=== PATIENT | male | born 2000 | race American Indian/Alaskan Native ===

== ENCOUNTER 2021-02-06 20:17 | Inpatient (IN) | payer SELFPAY ==
[2021-02-06 20:38] VITALS: BP 156/80; PULSE 105; RESP 18; TEMP 36.7; O2SAT 98; BMI 27.8
--- NOTE | 2021-02-06 21:18 | W.ED.PSYCHS ---
HPI - Psych General: Chief Complaint: Psychiatric Symptoms Stated Complaint: psyciatric Symptoms Time Seen by Provider: 02/06/21 20:47 Source: patient Mode of arrival: ambulatory Limitations: no limitations History of Present Illness: HPI Narrative: 20-year-old male states he has history of drug abuse. He states that he been wanting to go to rehab but his drug abuse also been causing depression and suicidality. He states he would like to get help would like to be admitted to the psychiatric gama. No active suicidal plan denies any worsening improving factors. Associated symptoms: Reports depression Review of Systems Const: Denies: fever(s), chills, body aches or change in appetite Eyes: Denies: blurry vision or eye discomfort ENMT: Denies: throat pain or dental pain Card: Denies: chest pain Resp: Denies: dyspnea GI: Denies: abdominal pain, nausea, vomiting or diarrhea : Denies: dysuria Musc: Denies: neck pain or back pain Skin/Breast: Denies: rash Neuro: Denies: headache(s) Psych: Reports: depression Josiah/Lymph: Denies: easy bruising All/Imm: Denies: urticaria Physical Exam Const: COMMON NORMALS: no acute distress, patient oriented x3 and healthy appearing HENMT: COMMON NORMALS: normocephalic and atraumatic HEAD & SCALP: normocephalic and atraumatic Eye: COMMON NORMALS: Equal, round and reactive pupils present and EOMs intact bilaterally PUPIL: Yes Equal, round and reactive pupils present Neck/C-Spine: COMMON NORMALS: full ROM and supple Chest: COMMONS NORMALS: normal inspection of the chest and normal palpation of entire chest wall Resp: COMMON NORMALS: normal respiratory effort, No retractions, No use of accessory muscles and clear to auscultation bilaterally AUSCULTATION: clear to auscultation bilaterally Cardio: COMMON NORMALS: regular rate, regular rhythm and No murmurs present (Cardio) RATE: regular rate RHYTHM: regular rhythm GI: COMMON NORMALS: Normal to inspection, nondistended, normoactive bowel sounds present, Soft to palpation, non-tender and no masses PALPATION: Yes Soft to palpation Extremity: COMMON NORMALS: normal to inspection and full ROM Neuro: COMMON NORMALS: patient oriented x3, moves all extremities and no focal motor deficits Psych: COMMON NORMALS: mental status grossly normal and cooperative THOUGHT CONTENT: Yes Suicidality present Skin: COMMON NORMALS: no rashes or lesions noted and no wounds GENERAL SKIN EXAM: no rashes or lesions noted Course Vital Signs: Vital signs: Vital Signs Temperature 98.1 F 02/06/21 20:38 Pulse Rate 105 H 02/06/21 20:38 Respiratory Rate 18 02/06/21 20:38 Blood Pressure 156/80 02/06/21 20:38 Pulse Oximetry 98 02/06/21 20:38 MDM - Psych MDM Narrative: Medical decision making narrative: Patient presents here with depression with suicidal thoughts likely from long-term methamphetamine abuse. Patient does not have any active plan but is voluntarily wanting help spoke to Dr. Murphy will admit to the psychiatric gama patient's blood work here is all normal. Lab Data: Labs: Lab Results 02/06/21 02/06/21 02/06/21 21:40 21:40 22:00 WBC 13.8 10^3/uL H 10 ^3/uL (4.0-10.0) RBC 4.68 10^6/uL 10^6 /uL (4.1-5.3) Hgb 13.8 g/dL g/dL (11.7-16.6) Hct 41.6 % L % (42.0-52.0) MCV 88.9 fl fl (80-94) MCH 29.5 pg pg (28.0-34.0) MCHC 33.2 g/dL g/dL (30.0-36.0) RDW 13.2 % % (12.1-15.1) Plt Count 272 10^3/cmm 10^3 /cmm (130-400) MPV 10.3 fL fL (7.4-10.4) Neut % (Auto) 70.4 % % Lymph % (Auto) 24.1 % % Humphreys % (Auto) 4.6 % % Eos % (Auto) 0.5 % % Baso % (Auto) 0.3 % % Neut # (Auto) 9.74 10^3/uL H 10 ^3/uL (1.8-7.7) Lymph # (Auto) 3.3 10^3/uL 10^3/ uL (0.8-4.8) Humphreys # (Auto) 0.6 10^3/uL 10^3/ uL (0.2-0.9) Eos # (Auto) 0.1 10^3/uL 10^3/ uL (0.0-0.8) Baso # (Auto) 0.0 10^3/uL 10^3/ uL (0.0-0.1) Nucleated RBC % (a uto) 0 % % Nucleated RBCs # 0.0 /100WBC /100W BC Sodium 140 mmol/L mmol/L (136-145) Potassium 3.6 mmol/L mmol/L (3.5-5.1) Chloride 103 mmol/L mmol/L (98-107) Carbon Dioxide 26 mmol/L mmol/L (22-29) Anion Gap 14.6 (5-19) BUN 8 mg/dL mg/dL (6-20) Creatinine 0.7 mg/dL mg/dL (0.7-1.2) GFR Calculation 141.0 mL/min H mL /min (90-130) Glucose 99 mg/dL mg/dL (65-115) Calculated Osmolal ity 288 mOsm/kg mOsm/ kg (285-295) Calcium 8.5 mg/dL mg/dL (8.5-10.5) Total Bilirubin 0.2 mg/dL mg/dL (0.15-1.2) AST 15 U/L U/L (0-40) ALT 15 U/L U/L (0-41) Alkaline Phosphata se 76 IU/L IU/L (40-130) Total Protein 7.5 g/dL g/dL (6.6-8.7) Albumin 4.2 g/dL g/dL (3.5-5.2) Globulin 3.3 g/dL g/dL (1.3-4.6) Salicylates < 0.3 mg/dL L mg/ dL (3-10) Acetaminophen < 5.0 ug/mL L ug/ mL (10-30) Ur Barbiturates Sc reen Negative ng/mL ng /mL (Negative) Ur Phencyclidine S crn Negative ng/mL ng /mL (Negative) Ur Amphetamines Sc reen Positive ng/mL H ng/mL (Negative) U Benzodiazepines Scrn Negative ng/mL ng /mL (Negative) Urine Cocaine Scre en Negative ng/mL ng /mL (Negative) U Marijuana (THC) Screen Positive ng/mL H ng/mL (Negative) Ethyl Alcohol 46 mg/dL H mg/dL (0-10) Discharge Plan Discharge Patient Disposition: Admitted As Inpatient Clinical Impression: Suicidal ideation, Methamphetamine abuse Condition: Stable Coding Level of Care Code ED Documentation Specialist for Radha Clark Exam Comprehensive
[2021-02-06 22:01] LABS: Basophils % 0.3 %; Eosinophils # 0.1 10^3/uL (0.0-0.8); Eosinophils % 0.5 %; Hematocrit 41.6 % (42.0-52.0); Hemoglobin 13.8 g/dL (11.7-16.6); Lymphocytes # 3.3 10^3/uL (0.8-4.8); Lymphocytes % 24.1 %; Mean Corpuscular HGB Conc 33.2 g/dL (30.0-36.0); Mean Corpuscular Hemoglobin 29.5 pg (28.0-34.0); Mean Corpuscular Volume 88.9 fl (80-94); Mean Platelet Volume 10.3 fL (7.4-10.4); Monocytes # 0.6 10^3/uL (0.2-0.9); Monocytes % 4.6 %; Neutrophils # 9.74 10^3/uL (1.8-7.7); Neutrophils % 70.4 %; Nucleated Red Blood Cells % 0 %; Platelet Count 272 10^3/cmm (130-400); Red Blood Count 4.68 10^6/uL (4.1-5.3); Red Cell Distribution Width 13.2 % (12.1-15.1); White Blood Count 13.8 10^3/uL (4.0-10.0)
[2021-02-06 22:14] LABS: Amphetamines Screen Urine Positive (Negative); Barbiturates Screen Urine Negative (Negative); Benzodiazepines Screen Urine Negative (Negative); Cocaine Screen Urine Negative (Negative); PCP Screen Urine Negative (Negative); THC Screen Urine Positive (Negative)
[2021-02-06 22:22] LABS: Alanine Aminotransferase 15 U/L (0-41); Albumin Level 4.2 g/dL (3.5-5.2); Alcohol Level 46 mg/dL (0-10); Alkaline Phosphatase 76 IU/L (40-130); Anion Gap 14.6 (5-19); Aspartate Amino Transferase 15 U/L (0-40); Blood Urea Nitrogen 8 mg/dL (6-20); Calcium 8.5 mg/dL (8.5-10.5); Carbon Dioxide 26 mmol/L (22-29); Chloride 103 mmol/L (98-107); Globulin 3.3 g/dL (1.3-4.6); Glucose 99 mg/dL (65-115); Osmolality Calculated 288 mOsm/kg (285-295); Potassium 3.6 mmol/L (3.5-5.1); Sodium 140 mmol/L (136-145); Total Bilirubin 0.2 mg/dL (0.15-1.2); Total Protein 7.5 g/dL (6.6-8.7)
[2021-02-06 22:23] LABS: Acetaminophen < 5.0 ug/mL (10-30); Salicylate < 0.3 mg/dL (3-10)
[2021-02-06 22:30] LABS: Opiate Screen Urine Negative (Negative)
[2021-02-06 23:20] VITALS: BP 156/80; PULSE 105; RESP 18; TEMP 36.7; O2SAT 98
[2021-02-06 23:27] VITALS: BP 156/80; PULSE 105; RESP 18; TEMP 36.7; O2SAT 98
[2021-02-06 23:55] VITALS: BP 153/99; PULSE 95; RESP 18; O2SAT 95
[2021-02-07] MEDS: hyDROXYzine 25 mg Capsule 50 MG PO ×2 (00:53→13:45)
[2021-02-07] MEDS: trazodone 50 mg Tablet PO (00:53)
--- NOTE | 2021-02-07 00:56 | PC.NURSE ---
patient given hydroxizine 50 mg po and trazadone 50 mh po for c/o anxiety and insomnia.
[2021-02-07 06:00] VITALS: BP 132/84; PULSE 80; RESP 16; O2SAT 96
[2021-02-07] MEDS: nicotine 21 mg Patch 1 PATCH TRANSDERMA (08:07)
[2021-02-07 14:00] VITALS: RESP 14
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
[2021-02-07 18:11] VITALS: RESP 14
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
== END 2021-02-07 18:17 | disposition left against medical advice (07) | DRG 881 ==
LOC: ER 22:26 → NP 23:32
PROVIDERS: Admitting Provider Psychiatry & Neurology Psychiatry; Emergency Provider Emergency Medicine; Visit Provider Psychiatry & Neurology Psychiatry
DX: F32.A Depression, unspecified (principal); R45.851 Suicidal ideations; F15.10 Other stimulant abuse, uncomplicated; F43.10 Post-traumatic stress disorder, unspecified; F17.210 Nicotine dependence, cigarettes, uncomplicated; F10.10 Alcohol abuse, uncomplicated; Z59.00 Homelessness unspecified; Z53.29 Procedure and treatment not carried out because of patient's decision for other reasons
CPT/HCPCS: 80053; 80306; 80307; 85025; 97150; 97165; 99285

== ENCOUNTER 2021-02-07 21:42 | Inpatient (IN) | payer SELFPAY ==
[2021-02-07 21:50] VITALS: BP 145/87; PULSE 91; RESP 15; TEMP 36.6; O2SAT 98; BMI 28.1
--- NOTE | 2021-02-07 22:03 | W.ED.PSYCHS ---
HPI - Psych General: Chief Complaint: Psychiatric Symptoms Stated Complaint: SI, possible harm to others Time Seen by Provider: 02/07/21 21:59 Source: patient Mode of arrival: ambulatory Limitations: no limitations History of Present Illness: HPI Narrative: 20-year-old male who seen overnight last night for depression along with methamphetamine abuse. He was admitted to the psych gama states that he decided today that he want to leave and go to his sister's house patient was released he states that since even his sisters has had increasing depression and is scared he is getting use he is going to [facility] Thursday states that he would like to be readmitted to the psych unit no active suicidal thoughts or plans denies any worsening improving factors. Associated symptoms: Deny depression Review of Systems Const: Denies: fever(s), chills, body aches or change in appetite Eyes: Denies: blurry vision or eye discomfort ENMT: Denies: throat pain or dental pain Card: Denies: chest pain Resp: Denies: dyspnea GI: Denies: abdominal pain, nausea, vomiting or diarrhea : Denies: dysuria Musc: Denies: neck pain or back pain Skin/Breast: Denies: rash Neuro: Denies: headache(s) Psych: Denies: depression Josiah/Lymph: Denies: easy bruising All/Imm: Denies: urticaria Physical Exam Const: COMMON NORMALS: no acute distress, patient oriented x3 and healthy appearing HENMT: COMMON NORMALS: normocephalic and atraumatic HEAD & SCALP: normocephalic and atraumatic Eye: COMMON NORMALS: Equal, round and reactive pupils present and EOMs intact bilaterally PUPIL: Yes Equal, round and reactive pupils present Neck/C-Spine: COMMON NORMALS: full ROM and supple Chest: COMMONS NORMALS: normal inspection of the chest and normal palpation of entire chest wall Resp: COMMON NORMALS: normal respiratory effort, No retractions, No use of accessory muscles and clear to auscultation bilaterally AUSCULTATION: clear to auscultation bilaterally Cardio: COMMON NORMALS: regular rate, regular rhythm and No murmurs present (Cardio) RATE: regular rate RHYTHM: regular rhythm GI: COMMON NORMALS: Normal to inspection, nondistended, normoactive bowel sounds present, Soft to palpation, non-tender and no masses PALPATION: Yes Soft to palpation Extremity: COMMON NORMALS: normal to inspection and full ROM Neuro: COMMON NORMALS: patient oriented x3, moves all extremities and no focal motor deficits Psych: COMMON NORMALS: mental status grossly normal, Normal thought process present and cooperative THOUGHT PROCESS: Normal thought process present Skin: COMMON NORMALS: no rashes or lesions noted and no wounds GENERAL SKIN EXAM: no rashes or lesions noted Course Vital Signs: Vital signs: Vital Signs Temperature 97.9 F 02/07/21 21:50 Pulse Rate 91 02/07/21 21:50 Respiratory Rate 15 02/07/21 21:50 Blood Pressure 145/87 02/07/21 21:50 Pulse Oximetry 98 02/07/21 21:50 MDM - Psych MDM Narrative: Medical decision making narrative: Patient presents here with drug abuse along with depression patient was admitted last night left today but realized that he could not stay sober and wants to be readmitted I did speak to Dr. Murphy will readmit him to the psychiatric unit. Discharge Plan Discharge Patient Disposition: Admitted As Inpatient Clinical Impression: Methamphetamine abuse, Depression Condition: Stable Coding Level of Care Code ED Accounts Administrator for Radha Clark
[2021-02-07 22:21] VITALS: BP 145/87; PULSE 91; RESP 15; TEMP 36.6; O2SAT 98
[2021-02-07 23:13] VITALS: BP 139/85; PULSE 79; RESP 17; O2SAT 96
[2021-02-08 06:00] VITALS: BP 132/82; PULSE 87; RESP 15; O2SAT 97
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
[2021-02-08] MEDS: nicotine 2 mg Gum BUCCAL (10:57)
[2021-02-08 15:15] VITALS: BP 132/82; PULSE 87; RESP 15; O2SAT 97
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
== END 2021-02-08 15:32 | disposition home or self-care (01) | DRG 881 ==
LOC: ER 22:03 → NP 22:13
PROVIDERS: Admitting Provider Psychiatry & Neurology Psychiatry; Emergency Provider Emergency Medicine; Visit Provider Psychiatry & Neurology Psychiatry
DX: F32.A Depression, unspecified (principal); R45.851 Suicidal ideations; F43.10 Post-traumatic stress disorder, unspecified; F15.10 Other stimulant abuse, uncomplicated; F17.210 Nicotine dependence, cigarettes, uncomplicated; Z91.51 Personal history of suicidal behavior
CPT/HCPCS: 97165; 99285